=== PATIENT | male | born 1950 | race Caucasian/White ===

== ENCOUNTER 2017-09-29 19:23 | Inpatient (IN) | payer MEDICARE, BC ==
[~2017-09-29 19:23] MED LIST: ADENOSINE 3 MG/ML SYRINGE IV; EPINEPHrine 0.1 MG/ML SYG; NA BICARBONATE 8.4% 50 ML SYG
[2017-09-29 19:45] LABS: ADD MAN DIFF? NO
[2017-09-29 19:47] LABS: WHITE BLOOD COUNT 19.4 10^3/ul (4.8-10.8)
[2017-09-29 19:47] LABS: BASOPHILS % 0.2 % (0.0-2.0); EOSINOPHILS # 0.2 10^3/ul (0.0-0.5); EOSINOPHILS % 0.8 % (0.0-7.0); HEMATOCRIT 34.8 % (42.0-52.0); HEMOGLOBIN 11.3 g/dl (14.0-18.0); LYMPHOCYTES # 3.7 10^3/ul (0.8-2.9); LYMPHOCYTES % 19.1 % (15.0-51.0); MEAN CORPUSCULAR HEMOGLOBIN 32.2 pg (29.0-33.0); MEAN CORPUSCULAR HGB CONC 32.5 g/dl (32.0-37.0); MEAN CORPUSCULAR VOLUME 99.1 fl (82.0-101.0); MEAN PLATELET VOLUME 10.6 fl (7.4-10.4); MONOCYTE # 0.7 10^3/ul (0.3-0.9); MONOCYTES % 3.7 % (0.0-11.0); NEUTROPHIL # 14.1 10^3/ul (1.6-7.5); NEUTROPHILS % 72.5 % (39.0-77.0); PLATELET COUNT 301 10^3/UL (140-415); RED BLOOD COUNT 3.51 10^6/ul (4.70-6.10); RED CELL DISTRIBUTION WIDTH 14.5 % (11.5-14.5)
[2017-09-29 20:05] LABS: ALANINE AMINOTRANSFERASE 41 IU/L (13-69); ALBUMIN 3.7 g/dl (3.3-4.9); ALKALINE PHOSPHATASE 70 IU/L (42-121); ANION GAP 27 (8-16); ASPARTATE AMINO TRANSFERASE 64 IU/L (15-46); BILIRUBIN,INDIRECT 0.2 mg/dl (0-1.1); BILIRUBIN,TOTAL 0.2 mg/dl (0.2-1.3); BLOOD UREA NITROGEN 44 mg/dl (7-20); CALCIUM 9.4 mg/dl (8.4-10.2); CARBON DIOXIDE 19 mmol/L (21-31); CHLORIDE 104 mmol/L (97-110); CREATININE 0.61 mg/dl (0.61-1.24); GLUCOSE 217 mg/dl (70-220); POTASSIUM 4.8 mmol/L (3.5-5.1); SODIUM 145 mmol/L (135-144); TOTAL PROTEIN 7.8 g/dl (6.1-8.1)
[2017-09-29 20:07] LABS: LACTIC ACID 8.8 mmol/L (0.5-2.0)
[2017-09-29] MEDS: SOD CHLORIDE 0.9% 1,000 ML IV ×2 (20:15→20:17)
[2017-09-29] MEDS: NORepinephrine 8MG/250 ML (PMX 250 ML IV (20:15)
[2017-09-29] MEDS: SOD CHLORIDE 0.9% 500 ML IV (20:16)
[2017-09-29 20:17] LABS: TROPONIN-I < 0.012 ng/ml (0.00-0.12)
[2017-09-29] MEDS: MIDAZOLAM (DRIP) 50 mg/50 mL 50 ML IV (20:20)
[2017-09-29 20:38] LABS: AADO2 Arterial 333.7 mmHg (7.0-24.0); Allen Test ACCEPTAB; Arterial Base Excess -6.5 mmol/L (-3.0-3); Arterial Blood Gas Oxygen Sat 99.5 mmHG (95.0-98.0); Arterial COHb 0.3 % (0.0-3.0); Arterial Fraction of Oxyhgb 98.6 % (93.0-99.0); Arterial HCO3 20.7 mmol/L (22.0-26.0); Arterial MetHb 0.6 % (0.0-1.5); Arterial Total Hemglobin 11.3 g/dl (12.0-18.0); Arterial pCO2 48.5 mmhg (35-45); Blood Gas Low PEEP Setting 0 cmH2O; MODE VENT - AC; Site Right Radial
[2017-09-29] MEDS: CEFEPIME 2GM/50 ML (PMX) 50 ML IVPB (20:39)
[2017-09-29 20:44] LABS: INR 1.44; PROTIME 17.8 Sec (11.9-14.9); PT RATIO 1.4
[2017-09-29 20:45] LABS: PARTIAL THROMBOPLASTIN TIME 30.3 Sec (25.0-35.0)
[2017-09-29] MEDS: VECURONIUM 100 MG in DEXTROSE 5% 100 ML IV (20:53)
[2017-09-29] MEDS: FENTAnyl (DRIP) 1000 mcg/100mL 100 ML IV ×2 (20:54→21:19)
[2017-09-29 21:18] LABS: ADD UMIC YES; UR ASCORBIC ACID 40 mg/dL (NEGATIVE); UR BACTERIA MODERATE /HPF (NONE SEEN); UR BILIRUBIN (Dip) NEGATIVE (NEGATIVE); UR BLOOD (Dip) 3+ mg/dL (NEGATIVE); UR CLARITY CLOUDY (CLEAR); UR COLOR YELLOW (YELLOW); UR GLUCOSE (Dip) NEGATIVE (NEGATIVE); UR KETONES (Dip) NEGATIVE (NEGATIVE); UR LEUKOCYTE ESTERASE (Dip) 3+ Leu/ul (NEGATIVE); UR MUCUS MODERATE /HPF (NONE SEEN); UR NITRITE (Dip) POSITIVE (NEGATIVE); UR RBC 115 /HPF (0-5); UR SPECIFIC GRAVITY (Dip) 1.017 (1.003-1.030); UR TOTAL PROTEIN (Dip) 2+ mg/dl (NEGATIVE); UR UROBILINOGEN (Dip) NEGATIVE (NEGATIVE); UR WBC 92 /HPF (0-5)
[2017-09-29 22:10] LABS: LACTIC ACID 1.9 mmol/L (0.5-2.0)
[2017-09-29] MEDS ORDERED: morphine 2 MG INJ IV (23:30)
[2017-09-29] MEDS ORDERED: ONDANSETRON 4 MG INJ IV (23:30)
[2017-09-29] MEDS ORDERED: PROPOFOL 100 ML IV (23:30)
[2017-09-29] MEDS ORDERED: NORepinephrine 8MG/250 ML (PMX 250 ML IV (23:30)
[2017-09-29] MEDS ORDERED: ACETAMINOPHEN 650 MG SUPP PR (23:30)
[2017-09-30 00:45] LABS: LACTIC ACID 1.2 mmol/L (0.5-2.0)
[2017-09-30] MEDS: OCULAR LUBRICANT 3.5 GM OPH OINT BOTH EYES ×5 (01:39→23:37)
[2017-09-30] MEDS: DEXTROSE 5%-0.45% NACL 1,000 ML IV ×3 (01:40→21:54)
[2017-09-30] MEDS: VANCOMYCIN 1.5 GM in SOD CHLORIDE 0.9% 250 ML IVPB (02:11)
[2017-09-30 06:00] LABS: ADD MAN DIFF? NO
[2017-09-30 06:38] LABS: Allen Test ACCEPTAB; Arterial Base Excess -2.1 mmol/L (-3.0-3); Arterial Blood Gas Oxygen Sat 97.2 mmHG (95.0-98.0); Arterial COHb 0.3 % (0.0-3.0); Arterial Fraction of Oxyhgb 96.7 % (93.0-99.0); Arterial HCO3 21.3 mmol/L (22.0-26.0); Arterial MetHb 0.2 % (0.0-1.5); Arterial Total Hemglobin 11.3 g/dl (12.0-18.0); Arterial pCO2 27.3 mmhg (35-45); Blood Gas Low PEEP Setting 0 cmH2O; MODE VENT - AC; Site Right Radial; Temperature 33.5 C
[2017-09-30 06:40] LABS: INR 1.34; PROTIME 16.8 Sec (11.9-14.9); PT RATIO 1.3
[2017-09-30 06:41] LABS: PARTIAL THROMBOPLASTIN TIME 32.2 Sec (25.0-35.0)
[2017-09-30 06:45] LABS: LIPASE 20 U/L (23-300); MAGNESIUM 1.3 mg/dl (1.7-2.5)
[2017-09-30 06:45] LABS: PHOSPHORUS 2.6 mg/dl (2.5-4.9); TROPONIN-I 0.015 ng/ml (0.00-0.12)
[2017-09-30 06:47] LABS: ALBUMIN 2.2 g/dl (3.3-4.9); AMYLASE < 30 U/L (11-123)
[2017-09-30 06:51] LABS: POTASSIUM 2.2 mmol/L (3.5-5.1)
[2017-09-30 07:12] LABS: BASOPHILS % 0.1 % (0.0-2.0); HEMATOCRIT 29.9 % (42.0-52.0); LYMPHOCYTES # 0.6 10^3/ul (0.8-2.9); LYMPHOCYTES % 6.3 % (15.0-51.0); MEAN CORPUSCULAR HEMOGLOBIN 32.1 pg (29.0-33.0); MEAN CORPUSCULAR HGB CONC 33.4 g/dl (32.0-37.0); MEAN CORPUSCULAR VOLUME 95.8 fl (82.0-101.0); MEAN PLATELET VOLUME 10.2 fl (7.4-10.4); MONOCYTE # 0.7 10^3/ul (0.3-0.9); NEUTROPHIL # 8.8 10^3/ul (1.6-7.5); NEUTROPHILS % 86.1 % (39.0-77.0); PLATELET COUNT 248 10^3/UL (140-415); RED BLOOD COUNT 3.12 10^6/ul (4.70-6.10); RED CELL DISTRIBUTION WIDTH 14.2 % (11.5-14.5)
[2017-09-30 07:12] LABS: WHITE BLOOD COUNT 10.2 10^3/ul (4.8-10.8)
[2017-09-30 07:35] LABS: SODIUM 147 mmol/L (135-144)
[2017-09-30 07:36] LABS: ANION GAP 16 (8-16); CARBON DIOXIDE 21 mmol/L (21-31); CHLORIDE 112 mmol/L (97-110); GLUCOSE 150 mg/dl (70-220)
[2017-09-30 07:37] LABS: BLOOD UREA NITROGEN 47 mg/dl (7-20); CREATININE 0.42 mg/dl (0.61-1.24)
[2017-09-30 07:38] LABS: ALANINE AMINOTRANSFERASE 42 IU/L (13-69); ASPARTATE AMINO TRANSFERASE 46 IU/L (15-46); CALCIUM 8.4 mg/dl (8.4-10.2)
[2017-09-30 07:39] LABS: ALBUMIN/GLOBULIN RATIO 0.47; ALKALINE PHOSPHATASE 54 IU/L (42-121); TOTAL PROTEIN 6.8 g/dl (6.1-8.1)
[2017-09-30] MEDS ORDERED: VANCOMYCIN IV PER PHARMACY XX (09:00)
[2017-09-30] MEDS: APIXABAN 5 MG TABLET GTB ×2 (09:00→21:55)
[2017-09-30] MEDS: CEFEPIME 1GM/50 ML (PMX) 50 ML IVPB ×2 (09:06→21:21)
[2017-09-30] MEDS: FAMOTIDINE 20 MG INJ IV ×2 (09:06→21:21)
[2017-09-30 10:14] LABS: POTASSIUM 2.4 mmol/L (3.5-5.1)
[2017-09-30] MEDS ORDERED: POTASSIUM CHLORIDE 50 ML IVPB (10:30)
[2017-09-30] MEDS ORDERED: MAGNESIUM SULFATE 1 GM/D5W 0 ML (10:35)
[2017-09-30] MEDS: MAGNESIUM SULFATE 2 GM/50 ML 50 ML IVPB ×2 (10:48→15:00)
[2017-09-30] MEDS: POTASSIUM CHLORIDE 50 ML IVPB ×2 (11:04→12:38)
[2017-09-30 12:01] LABS: Allen Test ACCEPTAB; Arterial Base Excess -3.7 mmol/L (-3.0-3); Arterial Blood Gas Oxygen Sat 98.1 mmHG (95.0-98.0); Arterial COHb 0.3 % (0.0-3.0); Arterial Fraction of Oxyhgb 97.5 % (93.0-99.0); Arterial HCO3 19.6 mmol/L (22.0-26.0); Arterial MetHb 0.3 % (0.0-1.5); Arterial Total Hemglobin 11.2 g/dl (12.0-18.0); Arterial pCO2 25.3 mmhg (35-45); Blood Gas Low PEEP Setting 0 cmH2O; MODE VENT - AC; Site Right Radial; Temperature 33.1 C
[2017-09-30 12:42] LABS: ADD MAN DIFF? NO
[2017-09-30 12:44] LABS: WHITE BLOOD COUNT 8.3 10^3/ul (4.8-10.8)
[2017-09-30 12:44] LABS: BASOPHILS % 0.1 % (0.0-2.0); EOSINOPHILS % 0.1 % (0.0-7.0); HEMATOCRIT 31.2 % (42.0-52.0); HEMOGLOBIN 10.2 g/dl (14.0-18.0); LYMPHOCYTES # 0.8 10^3/ul (0.8-2.9); MEAN CORPUSCULAR HGB CONC 32.7 g/dl (32.0-37.0); MEAN CORPUSCULAR VOLUME 94.8 fl (82.0-101.0); MEAN PLATELET VOLUME 10.4 fl (7.4-10.4); MONOCYTE # 0.6 10^3/ul (0.3-0.9); MONOCYTES % 7.1 % (0.0-11.0); NEUTROPHIL # 6.9 10^3/ul (1.6-7.5); NEUTROPHILS % 83.3 % (39.0-77.0); PLATELET COUNT 253 10^3/UL (140-415); RED BLOOD COUNT 3.29 10^6/ul (4.70-6.10); RED CELL DISTRIBUTION WIDTH 14.2 % (11.5-14.5)
[2017-09-30 13:07] LABS: INR 1.35; PROTIME 16.9 Sec (11.9-14.9); PT RATIO 1.3
[2017-09-30 13:08] LABS: PARTIAL THROMBOPLASTIN TIME 29.8 Sec (25.0-35.0)
[2017-09-30 13:16] LABS: TROPONIN-I < 0.012 ng/ml (0.00-0.12)
[2017-09-30 13:47] LABS: AMYLASE 46 U/L (11-123); ANION GAP 15 (8-16); BLOOD UREA NITROGEN 41 mg/dl (7-20); CALCIUM 8.2 mg/dl (8.4-10.2); CARBON DIOXIDE 20 mmol/L (21-31); CHLORIDE 111 mmol/L (97-110); GLUCOSE 145 mg/dl (70-220); LIPASE 26 U/L (23-300); MAGNESIUM 2.2 mg/dl (1.7-2.5); PHOSPHORUS 2.6 mg/dl (2.5-4.9); SODIUM 143 mmol/L (135-144)
[2017-09-30 13:48] LABS: POTASSIUM 2.7 mmol/L (3.5-5.1)
[2017-09-30] MEDS: VANCOMYCIN 1.25 GM in SOD CHLORIDE 0.9% 250 ML IVPB (14:52)
[2017-09-30] MEDS: MAGNESIUM SULFATE 4 GM/100 ML 100 ML IVPB ×2 (16:07→16:13)
[2017-09-30 17:34] LABS: ADD MAN DIFF? NO
[2017-09-30 17:37] LABS: BASOPHILS % 0.1 % (0.0-2.0); EOSINOPHILS % 0.1 % (0.0-7.0); HEMATOCRIT 30.4 % (42.0-52.0); LYMPHOCYTES # 0.6 10^3/ul (0.8-2.9); LYMPHOCYTES % 7.1 % (15.0-51.0); MEAN CORPUSCULAR HEMOGLOBIN 31.6 pg (29.0-33.0); MEAN CORPUSCULAR HGB CONC 32.9 g/dl (32.0-37.0); MEAN CORPUSCULAR VOLUME 96.2 fl (82.0-101.0); MEAN PLATELET VOLUME 10.6 fl (7.4-10.4); MONOCYTE # 0.5 10^3/ul (0.3-0.9); MONOCYTES % 5.3 % (0.0-11.0); NEUTROPHIL # 7.4 10^3/ul (1.6-7.5); NEUTROPHILS % 86.7 % (39.0-77.0); PLATELET COUNT 256 10^3/UL (140-415); RED BLOOD COUNT 3.16 10^6/ul (4.70-6.10); RED CELL DISTRIBUTION WIDTH 14.2 % (11.5-14.5)
[2017-09-30 17:37] LABS: WHITE BLOOD COUNT 8.5 10^3/ul (4.8-10.8)
[2017-09-30 18:01] LABS: AMYLASE 43 U/L (11-123); ANION GAP 16 (8-16); BLOOD UREA NITROGEN 38 mg/dl (7-20); CARBON DIOXIDE 19 mmol/L (21-31); CHLORIDE 112 mmol/L (97-110); CREATININE 0.41 mg/dl (0.61-1.24); GLUCOSE 139 mg/dl (70-220); LIPASE 28 U/L (23-300); MAGNESIUM 2.5 mg/dl (1.7-2.5); PHOSPHORUS 2.6 mg/dl (2.5-4.9); SODIUM 144 mmol/L (135-144)
[2017-09-30 18:08] LABS: INR 1.18; PROTIME 15.2 Sec (11.9-14.9); PT RATIO 1.2
[2017-09-30 18:09] LABS: PARTIAL THROMBOPLASTIN TIME 35.4 Sec (25.0-35.0)
[2017-09-30 18:13] LABS: POTASSIUM 2.7 mmol/L (3.5-5.1)
[2017-09-30 18:22] LABS: TROPONIN-I < 0.012 ng/ml (0.00-0.12)
[2017-09-30] MEDS: VECURONIUM 100 MG in DEXTROSE 5% 100 ML IV (18:45)
[2017-09-30] MEDS: POTASSIUM CHLORIDE 100 ML IVPB (19:11)
[2017-10-01 00:34] LABS: ADD MAN DIFF? NO
[2017-10-01 00:37] LABS: WHITE BLOOD COUNT 8.3 10^3/ul (4.8-10.8)
[2017-10-01 00:37] LABS: BASOPHILS % 0.1 % (0.0-2.0); EOSINOPHILS # 0.1 10^3/ul (0.0-0.5); EOSINOPHILS % 0.6 % (0.0-7.0); HEMATOCRIT 29.1 % (42.0-52.0); HEMOGLOBIN 9.7 g/dl (14.0-18.0); LYMPHOCYTES # 0.6 10^3/ul (0.8-2.9); LYMPHOCYTES % 7.2 % (15.0-51.0); MEAN CORPUSCULAR HEMOGLOBIN 31.9 pg (29.0-33.0); MEAN CORPUSCULAR HGB CONC 33.3 g/dl (32.0-37.0); MEAN CORPUSCULAR VOLUME 95.7 fl (82.0-101.0); MEAN PLATELET VOLUME 10.9 fl (7.4-10.4); MONOCYTE # 0.6 10^3/ul (0.3-0.9); MONOCYTES % 6.7 % (0.0-11.0); NEUTROPHIL # 7.1 10^3/ul (1.6-7.5); NEUTROPHILS % 85.2 % (39.0-77.0); PLATELET COUNT 267 10^3/UL (140-415); RED BLOOD COUNT 3.04 10^6/ul (4.70-6.10); RED CELL DISTRIBUTION WIDTH 14.2 % (11.5-14.5)
[2017-10-01 00:41] LABS: INR 1.14; PROTIME 14.8 Sec (11.9-14.9); PT RATIO 1.2
[2017-10-01 00:44] LABS: AMYLASE 32 U/L (11-123); ANION GAP 13 (8-16); BLOOD UREA NITROGEN 34 mg/dl (7-20); CALCIUM 8.1 mg/dl (8.4-10.2); CARBON DIOXIDE 21 mmol/L (21-31); CHLORIDE 111 mmol/L (97-110); CREATININE 0.34 mg/dl (0.61-1.24); GLUCOSE 138 mg/dl (70-220); LIPASE 28 U/L (23-300); MAGNESIUM 2.3 mg/dl (1.7-2.5); PHOSPHORUS 2.8 mg/dl (2.5-4.9); SODIUM 142 mmol/L (135-144)
[2017-10-01 00:58] LABS: TROPONIN-I < 0.012 ng/ml (0.00-0.12)
[2017-10-01] MEDS: VANCOMYCIN 1.25 GM in SOD CHLORIDE 0.9% 250 ML IVPB ×2 (03:01→14:44)
[2017-10-01] MEDS: MIDAZOLAM (DRIP) 50 mg/50 mL 50 ML IV (03:49)
[2017-10-01 04:21] LABS: ADD MAN DIFF? NO
[2017-10-01 04:24] LABS: BASOPHILS % 0.2 % (0.0-2.0); EOSINOPHILS # 0.1 10^3/ul (0.0-0.5); EOSINOPHILS % 1.4 % (0.0-7.0); HEMATOCRIT 29.5 % (42.0-52.0); HEMOGLOBIN 9.9 g/dl (14.0-18.0); LYMPHOCYTES # 0.8 10^3/ul (0.8-2.9); LYMPHOCYTES % 8.2 % (15.0-51.0); MEAN CORPUSCULAR HEMOGLOBIN 31.8 pg (29.0-33.0); MEAN CORPUSCULAR HGB CONC 33.6 g/dl (32.0-37.0); MEAN CORPUSCULAR VOLUME 94.9 fl (82.0-101.0); MEAN PLATELET VOLUME 10.5 fl (7.4-10.4); MONOCYTE # 0.8 10^3/ul (0.3-0.9); MONOCYTES % 8.3 % (0.0-11.0); NEUTROPHIL # 7.6 10^3/ul (1.6-7.5); NEUTROPHILS % 81.7 % (39.0-77.0); PLATELET COUNT 284 10^3/UL (140-415); RED BLOOD COUNT 3.11 10^6/ul (4.70-6.10); RED CELL DISTRIBUTION WIDTH 14.2 % (11.5-14.5)
[2017-10-01 04:24] LABS: WHITE BLOOD COUNT 9.3 10^3/ul (4.8-10.8)
[2017-10-01 04:39] LABS: AMYLASE 38 U/L (11-123); ANION GAP 15 (8-16); BLOOD UREA NITROGEN 29 mg/dl (7-20); CALCIUM 7.9 mg/dl (8.4-10.2); CARBON DIOXIDE 20 mmol/L (21-31); CHLORIDE 112 mmol/L (97-110); CREATININE 0.39 mg/dl (0.61-1.24); GLUCOSE 120 mg/dl (70-220); LIPASE 26 U/L (23-300); MAGNESIUM 2.1 mg/dl (1.7-2.5); PHOSPHORUS 2.2 mg/dl (2.5-4.9); SODIUM 144 mmol/L (135-144)
[2017-10-01 04:40] LABS: POTASSIUM 2.6 mmol/L (3.5-5.1)
[2017-10-01 04:50] LABS: INR 1.15; PROTIME 14.9 Sec (11.9-14.9); PT RATIO 1.2
[2017-10-01 04:50] LABS: TROPONIN-I < 0.012 ng/ml (0.00-0.12)
[2017-10-01 04:51] LABS: PARTIAL THROMBOPLASTIN TIME 39.4 Sec (25.0-35.0)
[2017-10-01 05:50] LABS: AADO2 Arterial 177.5 mmHg (7.0-24.0); Allen Test ACCEPTAB; Arterial Base Excess -3.8 mmol/L (-3.0-3); Arterial Blood Gas Oxygen Sat 97.5 mmHG (95.0-98.0); Arterial COHb 0.3 % (0.0-3.0); Arterial HCO3 18.8 mmol/L (22.0-26.0); Arterial MetHb 0.2 % (0.0-1.5); Arterial Total Hemglobin 10.9 g/dl (12.0-18.0); Arterial pCO2 23.6 mmhg (35-45); MODE VENT - AC; Site Right Radial
[2017-10-01 06:03] LABS: Allen Test ACCEPTAB; Arterial Base Excess -2.5 mmol/L (-3.0-3); Arterial Blood Gas Oxygen Sat 97.6 mmHG (95.0-98.0); Arterial COHb 0.3 % (0.0-3.0); Arterial HCO3 20.2 mmol/L (22.0-26.0); Arterial MetHb 0.3 % (0.0-1.5); Arterial Total Hemglobin 10.8 g/dl (12.0-18.0); Arterial pCO2 25.7 mmhg (35-45); MODE VENT - AC; Site Right Radial; Temperature 34.8 C
[2017-10-01] MEDS: OCULAR LUBRICANT 3.5 GM OPH OINT BOTH EYES ×4 (06:07→23:37)
[2017-10-01] MEDS: DEXTROSE 5%-0.45% NACL 1,000 ML IV ×2 (07:03→14:57)
[2017-10-01] MEDS: POTASSIUM CHLORIDE 100 ML IVPB ×3 (07:07→10:58)
[2017-10-01] MEDS ORDERED: NORepinephrine 8MG/250 ML (PMX 250 ML IVPB (08:00)
[2017-10-01] MEDS: CEFEPIME 1GM/50 ML (PMX) 50 ML IVPB ×2 (08:40→20:44)
[2017-10-01] MEDS: FAMOTIDINE 20 MG INJ IV ×2 (08:40→20:44)
[2017-10-01] MEDS: APIXABAN 5 MG TABLET GTB ×2 (09:02→20:44)
[2017-10-01 12:25] LABS: ADD MAN DIFF? NO
[2017-10-01 12:27] LABS: BASOPHILS % 0.2 % (0.0-2.0); EOSINOPHILS # 0.1 10^3/ul (0.0-0.5); EOSINOPHILS % 1.3 % (0.0-7.0); HEMATOCRIT 27.6 % (42.0-52.0); HEMOGLOBIN 9.4 g/dl (14.0-18.0); LYMPHOCYTES # 0.7 10^3/ul (0.8-2.9); LYMPHOCYTES % 7.8 % (15.0-51.0); MEAN CORPUSCULAR HEMOGLOBIN 32.2 pg (29.0-33.0); MEAN CORPUSCULAR HGB CONC 34.1 g/dl (32.0-37.0); MEAN CORPUSCULAR VOLUME 94.5 fl (82.0-101.0); MEAN PLATELET VOLUME 10.4 fl (7.4-10.4); MONOCYTE # 0.7 10^3/ul (0.3-0.9); MONOCYTES % 7.8 % (0.0-11.0); NEUTROPHIL # 6.9 10^3/ul (1.6-7.5); NEUTROPHILS % 82.5 % (39.0-77.0); PLATELET COUNT 268 10^3/UL (140-415); RED BLOOD COUNT 2.92 10^6/ul (4.70-6.10); RED CELL DISTRIBUTION WIDTH 14.3 % (11.5-14.5)
[2017-10-01 12:27] LABS: WHITE BLOOD COUNT 8.4 10^3/ul (4.8-10.8)
[2017-10-01 12:45] LABS: AMYLASE 33 U/L (11-123); ANION GAP 14 (8-16); BLOOD UREA NITROGEN 22 mg/dl (7-20); CARBON DIOXIDE 19 mmol/L (21-31); CHLORIDE 113 mmol/L (97-110); GLUCOSE 102 mg/dl (70-220); LIPASE 24 U/L (23-300); PHOSPHORUS 2.3 mg/dl (2.5-4.9); POTASSIUM 3.5 mmol/L (3.5-5.1); SODIUM 142 mmol/L (135-144)
[2017-10-01 12:46] LABS: INR 1.33; PROTIME 16.7 Sec (11.9-14.9); PT RATIO 1.3
[2017-10-01 12:47] LABS: PARTIAL THROMBOPLASTIN TIME 36.9 Sec (25.0-35.0)
[2017-10-01 12:57] LABS: TROPONIN-I < 0.012 ng/ml (0.00-0.12)
[2017-10-01 13:33] LABS: VANCOMYCIN,TROUGH 17.5 ug/ml (10.0-20.0)
[2017-10-01 17:00] LABS: ANION GAP 11 (8-16); BLOOD UREA NITROGEN 20 mg/dl (7-20); CALCIUM 7.9 mg/dl (8.4-10.2); CARBON DIOXIDE 20 mmol/L (21-31); CHLORIDE 113 mmol/L (97-110); CREATININE 0.42 mg/dl (0.61-1.24); GLUCOSE 112 mg/dl (70-220); POTASSIUM 3.2 mmol/L (3.5-5.1); SODIUM 141 mmol/L (135-144)
[2017-10-01 17:20] LABS: AADO2 Arterial 194.8 mmHg (7.0-24.0); Allen Test ACCEPTAB; Arterial Base Excess -4.8 mmol/L (-3.0-3); Arterial Blood Gas Oxygen Sat 91.6 mmHG (95.0-98.0); Arterial COHb 0.3 % (0.0-3.0); Arterial Fraction of Oxyhgb 91.1 % (93.0-99.0); Arterial HCO3 18.1 mmol/L (22.0-26.0); Arterial MetHb 0.3 % (0.0-1.5); Arterial Total Hemglobin 12.1 g/dl (12.0-18.0); Arterial pCO2 26.4 mmhg (35-45); Site Right Radial; Temperature 36.2 C
[2017-10-01] MEDS: POTASSIUM CHLORIDE (SR) 20 MEQ TAB PO (18:11)
[2017-10-01 18:26] LABS: ADD MAN DIFF? NO
[2017-10-01 18:28] LABS: WHITE BLOOD COUNT 8.4 10^3/ul (4.8-10.8)
[2017-10-01 18:28] LABS: BASOPHILS % 0.2 % (0.0-2.0); EOSINOPHILS # 0.1 10^3/ul (0.0-0.5); EOSINOPHILS % 1.2 % (0.0-7.0); HEMATOCRIT 28.3 % (42.0-52.0); HEMOGLOBIN 9.4 g/dl (14.0-18.0); LYMPHOCYTES # 0.7 10^3/ul (0.8-2.9); LYMPHOCYTES % 8.7 % (15.0-51.0); MEAN CORPUSCULAR HEMOGLOBIN 31.8 pg (29.0-33.0); MEAN CORPUSCULAR HGB CONC 33.2 g/dl (32.0-37.0); MEAN CORPUSCULAR VOLUME 95.6 fl (82.0-101.0); MEAN PLATELET VOLUME 10.6 fl (7.4-10.4); MONOCYTE # 0.7 10^3/ul (0.3-0.9); MONOCYTES % 8.6 % (0.0-11.0); NEUTROPHIL # 6.8 10^3/ul (1.6-7.5); NEUTROPHILS % 81.1 % (39.0-77.0); PLATELET COUNT 253 10^3/UL (140-415); RED BLOOD COUNT 2.96 10^6/ul (4.70-6.10); RED CELL DISTRIBUTION WIDTH 14.3 % (11.5-14.5)
[2017-10-01 18:50] LABS: AMYLASE 36 U/L (11-123); ANION GAP 9 (8-16); BLOOD UREA NITROGEN 19 mg/dl (7-20); CARBON DIOXIDE 20 mmol/L (21-31); CHLORIDE 114 mmol/L (97-110); CREATININE 0.44 mg/dl (0.61-1.24); GLUCOSE 111 mg/dl (70-220); INR 1.37; LIPASE 23 U/L (23-300); MAGNESIUM 1.8 mg/dl (1.7-2.5); PHOSPHORUS 2.5 mg/dl (2.5-4.9); POTASSIUM 3.3 mmol/L (3.5-5.1); PROTIME 17.1 Sec (11.9-14.9); PT RATIO 1.3; SODIUM 140 mmol/L (135-144)
[2017-10-01 18:51] LABS: PARTIAL THROMBOPLASTIN TIME 36.2 Sec (25.0-35.0)
[2017-10-01 19:09] LABS: TROPONIN-I < 0.012 ng/ml (0.00-0.12)
[2017-10-01] MEDS: ATORVASTATIN 20 MG TAB PEG (20:45)
[2017-10-02] MEDS: DEXTROSE 5%-0.45% NACL 1,000 ML IV ×2 (00:41→10:14)
[2017-10-02] MEDS: VANCOMYCIN 1 GM 250 ML IVPB ×2 (03:46→15:30)
[2017-10-02] MEDS: OCULAR LUBRICANT 3.5 GM OPH OINT BOTH EYES ×3 (05:28→17:35)
[2017-10-02] MEDS: APIXABAN 5 MG TABLET GTB ×2 (08:50→21:16)
[2017-10-02 08:53] LABS: ADD MAN DIFF? NO
[2017-10-02 08:54] LABS: WHITE BLOOD COUNT 7.4 10^3/ul (4.8-10.8)
[2017-10-02 08:54] LABS: BASOPHILS % 0.3 % (0.0-2.0); EOSINOPHILS # 0.1 10^3/ul (0.0-0.5); EOSINOPHILS % 1.7 % (0.0-7.0); HEMOGLOBIN 9.2 g/dl (14.0-18.0); LYMPHOCYTES # 1.1 10^3/ul (0.8-2.9); LYMPHOCYTES % 15.1 % (15.0-51.0); MEAN CORPUSCULAR HEMOGLOBIN 31.6 pg (29.0-33.0); MEAN CORPUSCULAR HGB CONC 32.9 g/dl (32.0-37.0); MEAN CORPUSCULAR VOLUME 96.2 fl (82.0-101.0); MONOCYTE # 0.7 10^3/ul (0.3-0.9); MONOCYTES % 8.9 % (0.0-11.0); NEUTROPHIL # 5.5 10^3/ul (1.6-7.5); NEUTROPHILS % 73.7 % (39.0-77.0); PLATELET COUNT 241 10^3/UL (140-415); RED BLOOD COUNT 2.91 10^6/ul (4.70-6.10); RED CELL DISTRIBUTION WIDTH 14.6 % (11.5-14.5)
[2017-10-02 09:15] LABS: ALANINE AMINOTRANSFERASE 28 IU/L (13-69); ALBUMIN 2.6 g/dl (3.3-4.9); ALBUMIN/GLOBULIN RATIO 0.72; ALKALINE PHOSPHATASE 53 IU/L (42-121); ANION GAP 12 (8-16); ASPARTATE AMINO TRANSFERASE 42 IU/L (15-46); BILIRUBIN,INDIRECT 0.1 mg/dl (0-1.1); BILIRUBIN,TOTAL 0.1 mg/dl (0.2-1.3); BLOOD UREA NITROGEN 12 mg/dl (7-20); CALCIUM 8.5 mg/dl (8.4-10.2); CARBON DIOXIDE 22 mmol/L (21-31); CHLORIDE 115 mmol/L (97-110); CREATININE 0.45 mg/dl (0.61-1.24); GLUCOSE 85 mg/dl (70-220); MAGNESIUM 1.9 mg/dl (1.7-2.5); PHOSPHORUS 2.9 mg/dl (2.5-4.9); POTASSIUM 3.2 mmol/L (3.5-5.1); SODIUM 146 mmol/L (135-144); TOTAL PROTEIN 6.2 g/dl (6.1-8.1)
[2017-10-02] MEDS: FAMOTIDINE 20 MG INJ IV ×2 (10:13→21:16)
[2017-10-02] MEDS: CEFEPIME 1GM/50 ML (PMX) 50 ML IVPB ×2 (10:14→21:17)
[2017-10-02] MEDS: POTASSIUM CHLORIDE 20 MEQ POWDER FOR ORAL SOLN GTB (10:14)
[2017-10-02] MEDS: ALBUTEROL HFA 8 GM INHALER INH ×3 (14:19→21:22)
[2017-10-02] MEDS: ACETYLCYSTEINE 20% 4 ML VIAL NEB ×3 (14:22→21:22)
[2017-10-02] MEDS: ATORVASTATIN 20 MG TAB PEG (21:16)
[2017-10-02] MEDS: METOPROLOL 25 MG TAB PO (21:18)
[2017-10-02] MEDS: IPRATROPIUM (HFA) 12.9 GM INHALER INH (21:22)
[2017-10-03] MEDS: ACETYLCYSTEINE 20% 4 ML VIAL NEB ×3 (01:00→08:58)
[2017-10-03 06:42] LABS: MAGNESIUM 1.8 mg/dl (1.7-2.5)
[2017-10-03 07:43] LABS: Allen Test ACCEPTAB; Arterial Base Excess -3.7 mmol/L (-3.0-3); Arterial Blood Gas Oxygen Sat 97.1 mmHG (95.0-98.0); Arterial COHb 0.3 % (0.0-3.0); Arterial Fraction of Oxyhgb 96.5 % (93.0-99.0); Arterial HCO3 20.1 mmol/L (22.0-26.0); Arterial MetHb 0.3 % (0.0-1.5); Arterial Total Hemglobin 10.8 g/dl (12.0-18.0); Arterial pCO2 25.9 mmhg (35-45); Blood Gas Low PEEP Setting 0 cmH2O; MODE VENT - AC; Site Right Radial; Temperature 32.4 C
[2017-10-03] MEDS: OCULAR LUBRICANT 3.5 GM OPH OINT BOTH EYES ×4 (08:08→18:11)
[2017-10-03] MEDS: ALBUTEROL HFA 8 GM INHALER INH ×2 (08:59→14:13)
[2017-10-03] MEDS: IPRATROPIUM (HFA) 12.9 GM INHALER INH ×2 (08:59→14:13)
[2017-10-03] MEDS: APIXABAN 5 MG TABLET GTB ×2 (09:31→21:20)
[2017-10-03] MEDS: FAMOTIDINE 20 MG INJ IV ×2 (09:33→21:22)
[2017-10-03] MEDS: POTASSIUM CHLORIDE 20 MEQ POWDER FOR ORAL SOLN GTB (09:33)
[2017-10-03] MEDS: METOPROLOL 25 MG TAB PO (09:33)
[2017-10-03 10:02] LABS: ADD MAN DIFF? NO
[2017-10-03 10:10] LABS: BASOPHILS % 0.2 % (0.0-2.0); EOSINOPHILS # 0.1 10^3/ul (0.0-0.5); EOSINOPHILS % 1.2 % (0.0-7.0); HEMATOCRIT 28.6 % (42.0-52.0); HEMOGLOBIN 9.2 g/dl (14.0-18.0); LYMPHOCYTES # 1.2 10^3/ul (0.8-2.9); LYMPHOCYTES % 13.9 % (15.0-51.0); MEAN CORPUSCULAR HEMOGLOBIN 31.4 pg (29.0-33.0); MEAN CORPUSCULAR HGB CONC 32.2 g/dl (32.0-37.0); MEAN CORPUSCULAR VOLUME 97.6 fl (82.0-101.0); MEAN PLATELET VOLUME 10.7 fl (7.4-10.4); MONOCYTE # 0.9 10^3/ul (0.3-0.9); MONOCYTES % 10.3 % (0.0-11.0); NEUTROPHIL # 6.2 10^3/ul (1.6-7.5); NEUTROPHILS % 73.9 % (39.0-77.0); PLATELET COUNT 244 10^3/UL (140-415); RED BLOOD COUNT 2.93 10^6/ul (4.70-6.10); RED CELL DISTRIBUTION WIDTH 14.6 % (11.5-14.5)
[2017-10-03 10:10] LABS: WHITE BLOOD COUNT 8.4 10^3/ul (4.8-10.8)
[2017-10-03] MEDS: CEFEPIME 1GM/50 ML (PMX) 50 ML IVPB ×2 (10:20→22:03)
[2017-10-03 10:32] LABS: ALANINE AMINOTRANSFERASE 35 IU/L (13-69); ALKALINE PHOSPHATASE 55 IU/L (42-121); ANION GAP 13 (8-16); ASPARTATE AMINO TRANSFERASE 56 IU/L (15-46); BILIRUBIN,INDIRECT 0.3 mg/dl (0-1.1); BILIRUBIN,TOTAL 0.3 mg/dl (0.2-1.3); BLOOD UREA NITROGEN 11 mg/dl (7-20); CALCIUM 8.8 mg/dl (8.4-10.2); CARBON DIOXIDE 25 mmol/L (21-31); CHLORIDE 112 mmol/L (97-110); CREATININE 0.54 mg/dl (0.61-1.24); GLUCOSE 97 mg/dl (70-220); POTASSIUM 3.5 mmol/L (3.5-5.1); SODIUM 146 mmol/L (135-144); TOTAL PROTEIN 6.3 g/dl (6.1-8.1)
[2017-10-03] MEDS: POTASSIUM CHLORIDE 100 ML IVPB (12:42)
[2017-10-03] MEDS: LEVETIRACETAM 500 MG (PMX) 100 ML IVPB ×2 (12:42→21:24)
[2017-10-03] MEDS: MAGNESIUM SULFATE 2 GM/50 ML 50 ML IVPB (12:43)
[2017-10-03] MEDS ORDERED: DIVALPROEX (EC) 250 MG TAB PO (13:00)
[2017-10-03] MEDS ORDERED: COLLAGENASE 30 GM TUBE TOP (13:30)
[2017-10-03] MEDS ORDERED: PENDING SANTYL ORDER FOR WOUND CARE XX (13:30)
[2017-10-03] MEDS: VALPROIC ACID LIQUID CUP 250 MG/5 ML CUP PO ×2 (13:42→21:20)
[2017-10-03] MEDS: COLLAGENASE 30 GM TUBE TOP (13:43)
[2017-10-03] MEDS: METOPROLOL 50 MG TAB PO ×2 (21:00→21:21)
[2017-10-03] MEDS: ATORVASTATIN 20 MG TAB PEG (21:20)
[2017-10-04] MEDS: OCULAR LUBRICANT 3.5 GM OPH OINT BOTH EYES ×4 (01:41→18:09)
[2017-10-04] MEDS: ARTIFICIAL TEARS 15 ML OPH BOTH EYES (01:43)
[2017-10-04 07:29] LABS: MODE VENT - AC
[2017-10-04] MEDS: METOPROLOL 50 MG TAB PO ×2 (09:13→21:15)
[2017-10-04] MEDS: LEVETIRACETAM 500 MG (PMX) 100 ML IVPB ×2 (09:14→21:14)
[2017-10-04] MEDS: APIXABAN 5 MG TABLET GTB ×2 (09:14→21:14)
[2017-10-04] MEDS: POTASSIUM CHLORIDE 20 MEQ POWDER FOR ORAL SOLN GTB (09:14)
[2017-10-04] MEDS: FAMOTIDINE 20 MG INJ IV ×2 (09:14→21:14)
[2017-10-04] MEDS: VALPROIC ACID LIQUID CUP 250 MG/5 ML CUP PO ×3 (09:14→21:13)
[2017-10-04] MEDS: CEFEPIME 1GM/50 ML (PMX) 50 ML IVPB ×2 (09:14→22:25)
[2017-10-04] MEDS: COLLAGENASE 30 GM TUBE TOP (09:15)
[2017-10-04 10:15] LABS: ADD MAN DIFF? NO
[2017-10-04 10:28] LABS: BASOPHILS % 0.2 % (0.0-2.0); EOSINOPHILS # 0.2 10^3/ul (0.0-0.5); EOSINOPHILS % 2.4 % (0.0-7.0); HEMATOCRIT 25.1 % (42.0-52.0); HEMOGLOBIN 8.2 g/dl (14.0-18.0); LYMPHOCYTES # 1.5 10^3/ul (0.8-2.9); LYMPHOCYTES % 16.9 % (15.0-51.0); MEAN CORPUSCULAR HGB CONC 32.7 g/dl (32.0-37.0); MEAN PLATELET VOLUME 10.6 fl (7.4-10.4); MONOCYTES % 10.7 % (0.0-11.0); NEUTROPHIL # 6.3 10^3/ul (1.6-7.5); NEUTROPHILS % 69.5 % (39.0-77.0); PLATELET COUNT 224 10^3/UL (140-415); RED BLOOD COUNT 2.56 10^6/ul (4.70-6.10); RED CELL DISTRIBUTION WIDTH 14.6 % (11.5-14.5)
[2017-10-04 10:44] LABS: ANION GAP 12 (8-16); BLOOD UREA NITROGEN 14 mg/dl (7-20); CALCIUM 8.7 mg/dl (8.4-10.2); CARBON DIOXIDE 27 mmol/L (21-31); CHLORIDE 108 mmol/L (97-110); CREATININE 0.49 mg/dl (0.61-1.24); GLUCOSE 111 mg/dl (70-220); POTASSIUM 4.2 mmol/L (3.5-5.1); SODIUM 143 mmol/L (135-144)
[2017-10-04] MEDS: LORAZEPAM 2 MG INJ IV (15:57)
[2017-10-04] MEDS: ACETAMINOPHEN 650MG/20.3ML CUP PO (19:58)
[2017-10-04] MEDS: ATORVASTATIN 20 MG TAB PEG (21:14)
[2017-10-05] MEDS: OCULAR LUBRICANT 3.5 GM OPH OINT BOTH EYES ×4 (00:43→18:28)
[2017-10-05] MEDS: LORAZEPAM 2 MG INJ IV ×2 (05:45→11:56)
[2017-10-05] MEDS: CEFEPIME 1GM/50 ML (PMX) 50 ML IVPB ×2 (09:23→21:56)
[2017-10-05] MEDS: FAMOTIDINE 20 MG INJ IV ×2 (09:24→21:21)
[2017-10-05] MEDS: VALPROIC ACID LIQUID CUP 250 MG/5 ML CUP PO ×3 (09:24→21:20)
[2017-10-05] MEDS: POTASSIUM CHLORIDE 20 MEQ POWDER FOR ORAL SOLN GTB (09:24)
[2017-10-05] MEDS: APIXABAN 5 MG TABLET GTB ×2 (09:25→21:20)
[2017-10-05] MEDS: METOPROLOL 50 MG TAB PO ×2 (09:25→21:21)
[2017-10-05] MEDS: COLLAGENASE 30 GM TUBE TOP (09:25)
[2017-10-05] MEDS: LEVETIRACETAM 500 MG (PMX) 100 ML IVPB ×2 (09:25→21:21)
[2017-10-05] MEDS: ACETAMINOPHEN 650MG/20.3ML CUP PO (11:56)
[2017-10-05 18:12] LABS: PROCALCITONIN 1.09 ng/mL (<0.10)
[2017-10-05] MEDS: ATORVASTATIN 20 MG TAB PEG (21:20)
[2017-10-06] MEDS: OCULAR LUBRICANT 3.5 GM OPH OINT BOTH EYES ×4 (00:26→18:20)
[2017-10-06] MEDS: LORAZEPAM 2 MG INJ IV (00:26)
[2017-10-06] MEDS: ACETAMINOPHEN 650MG/20.3ML CUP PO (03:37)
[2017-10-06] MEDS: CEFEPIME 1GM/50 ML (PMX) 50 ML IVPB ×2 (08:51→20:51)
[2017-10-06] MEDS: POTASSIUM CHLORIDE 20 MEQ POWDER FOR ORAL SOLN GTB (08:51)
[2017-10-06] MEDS: VALPROIC ACID LIQUID CUP 250 MG/5 ML CUP PO ×3 (08:51→20:52)
[2017-10-06] MEDS: APIXABAN 5 MG TABLET GTB ×2 (08:51→20:53)
[2017-10-06] MEDS: LEVETIRACETAM 500 MG (PMX) 100 ML IVPB ×2 (08:52→20:51)
[2017-10-06] MEDS: COLLAGENASE 30 GM TUBE TOP (08:52)
[2017-10-06] MEDS: FAMOTIDINE 20 MG INJ IV ×2 (08:57→21:23)
[2017-10-06] MEDS: METOPROLOL 50 MG TAB PO (08:58)
[2017-10-06] MEDS ORDERED: ALTEPLASE (CATHFLO) 2 MG INJ CATHETER (10:00)
[2017-10-06 10:04] LABS: ADD MAN DIFF? NO
[2017-10-06 10:08] LABS: WHITE BLOOD COUNT 7.7 10^3/ul (4.8-10.8)
[2017-10-06 10:08] LABS: BASOPHILS % 0.1 % (0.0-2.0); EOSINOPHILS # 0.4 10^3/ul (0.0-0.5); EOSINOPHILS % 4.7 % (0.0-7.0); HEMATOCRIT 24.7 % (42.0-52.0); HEMOGLOBIN 7.9 g/dl (14.0-18.0); LYMPHOCYTES # 1.7 10^3/ul (0.8-2.9); LYMPHOCYTES % 21.5 % (15.0-51.0); MEAN CORPUSCULAR HEMOGLOBIN 31.1 pg (29.0-33.0); MEAN CORPUSCULAR VOLUME 97.2 fl (82.0-101.0); MEAN PLATELET VOLUME 10.3 fl (7.4-10.4); MONOCYTE # 1.1 10^3/ul (0.3-0.9); MONOCYTES % 13.7 % (0.0-11.0); NEUTROPHIL # 4.6 10^3/ul (1.6-7.5); NEUTROPHILS % 59.6 % (39.0-77.0); PLATELET COUNT 209 10^3/UL (140-415); RED BLOOD COUNT 2.54 10^6/ul (4.70-6.10); RED CELL DISTRIBUTION WIDTH 14.4 % (11.5-14.5)
[2017-10-06 10:28] LABS: ALANINE AMINOTRANSFERASE 34 IU/L (13-69); ALBUMIN 2.9 g/dl (3.3-4.9); ALBUMIN/GLOBULIN RATIO 0.78; ALKALINE PHOSPHATASE 46 IU/L (42-121); ANION GAP 11 (8-16); ASPARTATE AMINO TRANSFERASE 72 IU/L (15-46); BILIRUBIN,INDIRECT 0.1 mg/dl (0-1.1); BILIRUBIN,TOTAL 0.1 mg/dl (0.2-1.3); BLOOD UREA NITROGEN 19 mg/dl (7-20); CALCIUM 8.6 mg/dl (8.4-10.2); CARBON DIOXIDE 32 mmol/L (21-31); CHLORIDE 104 mmol/L (97-110); CREATININE 0.53 mg/dl (0.61-1.24); GLUCOSE 121 mg/dl (70-220); MAGNESIUM 1.7 mg/dl (1.7-2.5); PHOSPHORUS 3.4 mg/dl (2.5-4.9); POTASSIUM 4.3 mmol/L (3.5-5.1); SODIUM 143 mmol/L (135-144); TOTAL PROTEIN 6.6 g/dl (6.1-8.1)
[2017-10-06] MEDS: ALTEPLASE (CATHFLO) 2 MG INJ CATHETER (12:44)
[2017-10-06] MEDS: METOPROLOL 25 MG TAB PO (20:52)
[2017-10-06] MEDS: ATORVASTATIN 20 MG TAB PEG (20:53)
[2017-10-07] MEDS: OCULAR LUBRICANT 3.5 GM OPH OINT BOTH EYES ×4 (00:31→17:53)
[2017-10-07 04:29] LABS: ADD MAN DIFF? NO
[2017-10-07 04:31] LABS: BASOPHILS % 0.1 % (0.0-2.0); EOSINOPHILS # 0.3 10^3/ul (0.0-0.5); EOSINOPHILS % 2.9 % (0.0-7.0); HEMATOCRIT 24.8 % (42.0-52.0); HEMOGLOBIN 8.1 g/dl (14.0-18.0); LYMPHOCYTES # 1.6 10^3/ul (0.8-2.9); LYMPHOCYTES % 17.8 % (15.0-51.0); MEAN CORPUSCULAR HEMOGLOBIN 31.3 pg (29.0-33.0); MEAN CORPUSCULAR HGB CONC 32.7 g/dl (32.0-37.0); MEAN CORPUSCULAR VOLUME 95.8 fl (82.0-101.0); MEAN PLATELET VOLUME 10.7 fl (7.4-10.4); MONOCYTE # 0.9 10^3/ul (0.3-0.9); MONOCYTES % 10.3 % (0.0-11.0); NEUTROPHIL # 6.1 10^3/ul (1.6-7.5); NEUTROPHILS % 68.6 % (39.0-77.0); PLATELET COUNT 233 10^3/UL (140-415); RED BLOOD COUNT 2.59 10^6/ul (4.70-6.10); RED CELL DISTRIBUTION WIDTH 14.3 % (11.5-14.5)
[2017-10-07 04:31] LABS: WHITE BLOOD COUNT 8.9 10^3/ul (4.8-10.8)
[2017-10-07 04:50] LABS: ANION GAP 11 (8-16); BLOOD UREA NITROGEN 16 mg/dl (7-20); CALCIUM 8.6 mg/dl (8.4-10.2); CARBON DIOXIDE 32 mmol/L (21-31); CHLORIDE 101 mmol/L (97-110); CREATININE 0.52 mg/dl (0.61-1.24); GLUCOSE 119 mg/dl (70-220); MAGNESIUM 1.7 mg/dl (1.7-2.5); PHOSPHORUS 3.2 mg/dl (2.5-4.9); POTASSIUM 4.1 mmol/L (3.5-5.1); SODIUM 140 mmol/L (135-144)
[2017-10-07] MEDS: VALPROIC ACID LIQUID CUP 250 MG/5 ML CUP PO ×3 (10:39→20:59)
[2017-10-07] MEDS: POTASSIUM CHLORIDE 20 MEQ POWDER FOR ORAL SOLN GTB (10:39)
[2017-10-07] MEDS: LEVETIRACETAM 500 MG (PMX) 100 ML IVPB ×2 (10:40→20:58)
[2017-10-07] MEDS: FAMOTIDINE 20 MG INJ IV ×2 (10:40→21:25)
[2017-10-07] MEDS: METOPROLOL 25 MG TAB PO ×2 (10:40→20:59)
[2017-10-07] MEDS: CEFEPIME 1GM/50 ML (PMX) 50 ML IVPB ×2 (10:40→20:58)
[2017-10-07] MEDS: APIXABAN 5 MG TABLET GTB ×2 (10:40→20:58)
[2017-10-07] MEDS: COLLAGENASE 30 GM TUBE TOP (10:40)
[2017-10-07] MEDS: ACETAMINOPHEN 650MG/20.3ML CUP PO (15:48)
[2017-10-07] MEDS: ATORVASTATIN 20 MG TAB PEG (20:58)
[2017-10-08] MEDS: OCULAR LUBRICANT 3.5 GM OPH OINT BOTH EYES ×4 (00:25→18:12)
[2017-10-08] MEDS: VALPROIC ACID LIQUID CUP 250 MG/5 ML CUP PO ×3 (08:06→20:43)
[2017-10-08] MEDS: LEVETIRACETAM 500 MG (PMX) 100 ML IVPB ×2 (08:07→20:44)
[2017-10-08] MEDS: FAMOTIDINE 20 MG INJ IV ×2 (08:09→20:42)
[2017-10-08] MEDS: METOPROLOL 25 MG TAB PO ×2 (08:15→20:43)
[2017-10-08] MEDS: APIXABAN 5 MG TABLET GTB ×2 (08:15→20:45)
[2017-10-08] MEDS: POTASSIUM CHLORIDE 20 MEQ POWDER FOR ORAL SOLN GTB (08:16)
[2017-10-08] MEDS: CEFEPIME 1GM/50 ML (PMX) 50 ML IVPB ×2 (08:19→20:44)
[2017-10-08] MEDS: COLLAGENASE 30 GM TUBE TOP (08:19)
[2017-10-08] MEDS: DIVALPROEX (EC) 500 MG TAB PO (12:18)
[2017-10-08] MEDS: ATORVASTATIN 20 MG TAB PEG (20:43)
[2017-10-08] MEDS: LEVETIRACETAM 1500 MG (PMX) 100 ML IVPB (20:44)
[2017-10-08] MEDS: ARTIFICIAL TEARS 15 ML OPH BOTH EYES (23:23)
[2017-10-09] MEDS: ARTIFICIAL TEARS 15 ML OPH BOTH EYES (05:12)
[2017-10-09] MEDS: OCULAR LUBRICANT 3.5 GM OPH OINT BOTH EYES ×4 (05:13→18:00)
[2017-10-09] MEDS: FAMOTIDINE 20 MG INJ IV (08:00)
[2017-10-09] MEDS: POTASSIUM CHLORIDE 20 MEQ POWDER FOR ORAL SOLN GTB (08:01)
[2017-10-09] MEDS: VALPROIC ACID LIQUID CUP 250 MG/5 ML CUP PO ×2 (08:01→13:10)
[2017-10-09] MEDS: METOPROLOL 25 MG TAB PO ×2 (08:01→21:25)
[2017-10-09] MEDS: LEVETIRACETAM 500 MG (PMX) 100 ML IVPB (08:01)
[2017-10-09] MEDS: LEVETIRACETAM 1500 MG (PMX) 100 ML IVPB ×2 (08:02→21:25)
[2017-10-09] MEDS: APIXABAN 5 MG TABLET GTB ×2 (08:02→21:26)
[2017-10-09] MEDS: CEFEPIME 1GM/50 ML (PMX) 50 ML IVPB ×2 (08:02→21:24)
[2017-10-09] MEDS: COLLAGENASE 30 GM TUBE TOP (08:03)
[2017-10-09] MEDS: FAMOTIDINE 20 MG TAB GTB (21:25)
[2017-10-09] MEDS: ATORVASTATIN 20 MG TAB PEG (21:25)
[2017-10-10] MEDS: OCULAR LUBRICANT 3.5 GM OPH OINT BOTH EYES ×5 (00:17→23:54)
[2017-10-10] MEDS: VALPROIC ACID LIQUID CUP 250 MG/5 ML CUP PO ×4 (00:23→20:33)
[2017-10-10 06:44] LABS: VALPROATE 75 ug/ml (50-100)
[2017-10-10] MEDS: POTASSIUM CHLORIDE 20 MEQ POWDER FOR ORAL SOLN GTB (09:06)
[2017-10-10] MEDS: METOPROLOL 25 MG TAB PO ×2 (09:07→20:34)
[2017-10-10] MEDS: LEVETIRACETAM 1500 MG (PMX) 100 ML IVPB ×2 (09:07→20:32)
[2017-10-10] MEDS: FAMOTIDINE 20 MG TAB GTB ×2 (09:07→20:33)
[2017-10-10] MEDS: CEFEPIME 1GM/50 ML (PMX) 50 ML IVPB ×2 (09:07→20:32)
[2017-10-10] MEDS: APIXABAN 5 MG TABLET GTB ×2 (09:07→20:33)
[2017-10-10] MEDS: COLLAGENASE 30 GM TUBE TOP (09:08)
[2017-10-10] MEDS: ATORVASTATIN 20 MG TAB PEG (20:33)
[2017-10-11] MEDS: OCULAR LUBRICANT 3.5 GM OPH OINT BOTH EYES ×3 (06:27→17:23)
[2017-10-11] MEDS: POTASSIUM CHLORIDE 20 MEQ POWDER FOR ORAL SOLN GTB (09:19)
[2017-10-11] MEDS: LEVETIRACETAM 1500 MG (PMX) 100 ML IVPB ×2 (09:19→21:47)
[2017-10-11] MEDS: VALPROIC ACID LIQUID CUP 250 MG/5 ML CUP PO ×3 (09:19→21:45)
[2017-10-11] MEDS: CEFEPIME 1GM/50 ML (PMX) 50 ML IVPB ×2 (09:19→21:46)
[2017-10-11] MEDS: APIXABAN 5 MG TABLET GTB ×2 (09:19→21:45)
[2017-10-11] MEDS: FAMOTIDINE 20 MG TAB GTB ×2 (09:19→21:45)
[2017-10-11] MEDS: METOPROLOL 25 MG TAB PO ×2 (09:20→21:00)
[2017-10-11] MEDS: COLLAGENASE 30 GM TUBE TOP (11:27)
[2017-10-11] MEDS: SOD CHLORIDE 0.9% 1,000 ML IV (14:22)
[2017-10-11] MEDS: ATORVASTATIN 20 MG TAB PEG (21:45)
[2017-10-12] MEDS: OCULAR LUBRICANT 3.5 GM OPH OINT BOTH EYES ×3 (00:05→11:31)
[2017-10-12 05:57] LABS: ANION GAP 12 (8-16); BLOOD UREA NITROGEN 20 mg/dl (7-20); CALCIUM 8.3 mg/dl (8.4-10.2); CARBON DIOXIDE 28 mmol/L (21-31); CHLORIDE 106 mmol/L (97-110); CREATININE 0.38 mg/dl (0.61-1.24); GLUCOSE 102 mg/dl (70-220); SODIUM 142 mmol/L (135-144)
[2017-10-12] MEDS: VALPROIC ACID LIQUID CUP 250 MG/5 ML CUP PO ×2 (08:10→12:29)
[2017-10-12] MEDS: POTASSIUM CHLORIDE 20 MEQ POWDER FOR ORAL SOLN GTB (08:10)
[2017-10-12] MEDS: COLLAGENASE 30 GM TUBE TOP (08:11)
[2017-10-12] MEDS: APIXABAN 5 MG TABLET GTB (08:11)
[2017-10-12] MEDS: CEFEPIME 1GM/50 ML (PMX) 50 ML IVPB (08:11)
[2017-10-12] MEDS: LEVETIRACETAM 1500 MG (PMX) 100 ML IVPB (08:11)
[2017-10-12] MEDS: METOPROLOL 25 MG TAB PO (08:11)
[2017-10-12] MEDS: FAMOTIDINE 20 MG TAB GTB (08:11)
[2017-10-12] MEDS: morphine (DRIP) 100 MG/100 ML 100 ML IV (20:10)
[2017-10-13] MEDS ORDERED: LORAZEPAM 2 MG INJ IV (11:00)
[2017-10-13] MEDS ORDERED: ACETAMINOPHEN 650MG/20.3ML CUP GTB (11:00)
[2017-10-13] MEDS: ARTIFICIAL TEARS 15 ML OPH BOTH EYES ×2 (12:00→17:28)
[2017-10-13] MEDS: LEVETIRACETAM 750 MG TAB PO ×2 (12:50→21:24)
[2017-10-13] MEDS: VALPROIC ACID LIQUID CUP 250 MG/5 ML CUP GTB ×2 (12:51→22:37)
[2017-10-13] MEDS: COLLAGENASE 30 GM TUBE TOP (17:30)
[2017-10-14] MEDS: ARTIFICIAL TEARS 15 ML OPH BOTH EYES (04:17)
[2017-10-14] MEDS: morphine (DRIP) 100 MG/100 ML 100 ML IV (05:12)
[2017-10-14] MEDS: VALPROIC ACID LIQUID CUP 250 MG/5 ML CUP GTB ×3 (08:11→22:14)
[2017-10-14] MEDS: LEVETIRACETAM 750 MG TAB PO ×2 (08:11→22:14)
[2017-10-14] MEDS: COLLAGENASE 30 GM TUBE TOP (08:11)
[2017-10-15] MEDS: VALPROIC ACID LIQUID CUP 250 MG/5 ML CUP GTB ×2 (08:28→14:25)
[2017-10-15] MEDS: COLLAGENASE 30 GM TUBE TOP (08:28)
[2017-10-15] MEDS: LEVETIRACETAM 750 MG TAB PO (08:28)
[2017-10-15] MEDS: morphine (DRIP) 100 MG/100 ML 100 ML IV (15:30)
== END 2017-10-16 00:30 | disposition expired | DRG 207 ==
LOC: ICU 23:09 → MS2 10-13 18:00 → E/R 19:23 → ICU 10-02 09:50 → E/R 19:23
PROC: 5A1955Z Respiratory Ventilation, Greater than 96 Consecutive Hours (ICD-10-PCS; principal; 2017-09-29)
PROC: 06HM33Z Insertion of Infusion Device into Right Femoral Vein, Percutaneous Approach (ICD-10-PCS; 2017-09-29)
DX: T17.990A Other foreign object in respiratory tract, part unspecified in causing asphyxiation, initial encounter (principal); L89.153 Pressure ulcer of sacral region, stage 3; R53.2 Functional quadriplegia; J18.9 Pneumonia, unspecified organism; A41.9 Sepsis, unspecified organism; G93.1 Anoxic brain damage, not elsewhere classified; J96.10 Chronic respiratory failure, unspecified whether with hypoxia or hypercapnia; E87.0 Hyperosmolality and hypernatremia; E87.2 Acidosis; N13.8 Other obstructive and reflux uropathy; N39.0 Urinary tract infection, site not specified; G40.89 Other seizures; I69.954 Hemiplegia and hemiparesis following unspecified cerebrovascular disease affecting left non-dominant side; Z99.11 Dependence on respirator [ventilator] status; I46.8 Cardiac arrest due to other underlying condition; R57.0 Cardiogenic shock; D63.8 Anemia in other chronic diseases classified elsewhere; E87.6 Hypokalemia; E78.5 Hyperlipidemia, unspecified; G83.84 Todd's paralysis (postepileptic); G40.901 Epilepsy, unspecified, not intractable, with status epilepticus; I48.0 Paroxysmal atrial fibrillation; J44.9 Chronic obstructive pulmonary disease, unspecified; N40.1 Benign prostatic hyperplasia with lower urinary tract symptoms; R13.10 Dysphagia, unspecified; B96.1 Klebsiella pneumoniae [K. pneumoniae] as the cause of diseases classified elsewhere; X58.XXXA Exposure to other specified factors, initial encounter; Z66 Do not resuscitate; Z16.12 Extended spectrum beta lactamase (ESBL) resistance; B94.1 Sequelae of viral encephalitis; Z86.61 Personal history of infections of the central nervous system; Z93.0 Tracheostomy status; Z93.1 Gastrostomy status; Z79.02 Long term (current) use of antithrombotics/antiplatelets
CPT/HCPCS: 36415; 36600; 70450; 70551; 71045; 76937; 80048; 80053; 80164; 80202; 81001; 82150; 82803; 82962; 83605; 83690; 83735; 84100; 84132; 84145; 84484; 85025; 85384; 85610; 85730; 87040; 87081; 87086; 93005; 93306; 94002; 94003; 94640; 95819; 96365; 96366; 96367; 96368; 96375; 96376; 99291-25